=== PATIENT | female | born 1955 | race Caucasian/White ===

== ENCOUNTER 2020-09-22 16:57 | Emergency (ER) | payer OTHER ==
[~2020-09-22] VITALS: Ht 154.9 cm; Wt 62.6 kg
[2020-09-22] MEDS ORDERED: HYDROCODON-ACE1 EAC7 PO ×2 (18:24→18:39)
[2020-09-22 19:02] VITALS: BP 159/85
== END 2020-09-22 19:03 | disposition home or self-care (01) ==
LOC: M.ERS 16:57
DX: S82.831A Other fracture of upper and lower end of right fibula, initial encounter for closed fracture (principal); Z85.41 Personal history of malignant neoplasm of cervix uteri; Z85.3 Personal history of malignant neoplasm of breast; Z88.5 Allergy status to narcotic agent; X50.1XXA Overexertion from prolonged static or awkward postures, initial encounter; Y93.89 Activity, other specified; Y92.89 Other specified places as the place of occurrence of the external cause; Y99.8 Other external cause status